=== PATIENT | male | born 1930 | race Caucasian/White ===

== ENCOUNTER 2020-12-05 10:13 | Emergency (ER) | payer MEDICARE, OTHER ==
[~2020-12-05] VITALS: Ht 188 cm; Wt 90.7 kg
[2020-12-05 10:19] VITALS: BP 137/67
--- NOTE | 2020-12-05 10:31 | NUR ---
Dr. Calvillo at pt bedside for further evaluation.
[2020-12-05] MEDS ORDERED: fentaNYL citrate 0.05 MG/ML VIAL ONE (10:34)
--- NOTE | 2020-12-05 10:40 | NUR ---
PATIENT PRESENTS TO ED WITH C/O FISH HOOK IN TOES. PT STATES HE STEPPED ON FISH HOOK BAREFOOT IN GARAGE. DENIES N/V/D; SKIN IS PINK/WARM/DRY; AAOX4 WITH EVEN AND STEADY GAIT; LUNGS CLEAR BL; HR EVEN AND REGULAR; PT DENIES ANY FEVER, CP, SOB, OR COUGH AT THIS TIME; PATIENT STATES PAIN OF 10/10 AT THIS TIME; VSS; PATIENT POSITIONED FOR COMFORT; HOB ELEVATED; BEDRAILS UP X2; BED DOWN. ER MD MADE AWARE OF PT STATUS.
--- NOTE | 2020-12-05 10:40 | NUR ---
R AC 20 G IV INITIATED, BLEEDING CONTROLLED. 50 MCG FENTANYL ADMINISTERED PER VERBAL ORDER FROM DR. STRAUSS.
[2020-12-05] MEDS ORDERED: LIDOCAINE/EPI 1% 1:100000 20 ML VIAL INJ ONE ×2 (10:43→11:15)
--- NOTE | 2020-12-05 10:45 | NUR ---
LIDOCAINE 1% [address] STRAUSS AT BEDSIDE
[2020-12-05] MEDS ORDERED: BACITRACIN OINT 500 UNITS/GM PKT TP ONE (11:15)
[2020-12-05] MEDS ORDERED: fentaNYL citrate 0.05 MG/ML VIAL IVP ONE (11:15)
[2020-12-05 11:35] VITALS: BP 137/67
--- NOTE | 2020-12-05 11:35 | NUR ---
Patient discharged with v/s stable. Written and verbal after care instructions given and explained. Patient verbalized understanding. Wheel Chair Assisted with to car. All questions addressed prior to discharge. Advised to follow up with PMD.
== END 2020-12-05 11:35 | disposition home or self-care (01) ==
LOC: MED 10:13
DX: S90.851A Superficial foreign body, right foot, initial encounter (principal); X58.XXXA Exposure to other specified factors, initial encounter; Y93.89 Activity, other specified; Y92.89 Other specified places as the place of occurrence of the external cause; Y99.8 Other external cause status
CPT/HCPCS: 90471; 90715; 96374; 99284; J2001; J3010